=== PATIENT | female | born 1985 | race Hispanic/Latino ===

== ENCOUNTER → 2019-09-11 | Day surgery (SDC) | payer BC ==
[~2019-09-11] MED LIST: LEVOTHYROXINE88 MCG PO; PROPOFOL IV EMULSION 10 MG/ML 20 ML VIAL ONE; VITAMIN E400 UNI1 PO
[2019-09-11 11:30] VITALS: BP 102/72
--- NOTE | 2019-09-11 12:09 | Operative Report ---
DATE OF PROCEDURE: 09/11/2019 SURGEON: Enrique Meyer MD REFERRING PHYSICIANS: 1. Dr. Leonardo Noland. 2. Dr. Carolina Hamilton. PROCEDURE: EGD with biopsies and esophageal dilatation. INDICATIONS FOR PROCEDURE: Acid reflux, dysphagia to solids. MEDICATIONS: The patient was done under MAC, please see anesthesiologist's note. PROCEDURE IN DETAIL: With the patient in left lateral decubitus position, a flexible fiberoptic Olympus gastroscope was introduced into the esophagus under direct visualization without any difficulty. There was some patchy erythema noted in distal esophagus. A minute tongue of velvety red mucosa was noted to extend proximally from the GE junction and biopsies were obtained to rule out Jimenez's. Esophagus was then dilated to size 52-[place] Ramos. The scope was then advanced with ease into the stomach. Mucosa overlying the antrum and the body revealed some diffuse erythema and [id number] edema, and biopsies were obtained. A minute polyp, hyperplastic appearing, was noted in the midbody of the stomach and that was partially excised with the cold biopsy forceps. The pylorus was of normal contour and shape, it was intubated with ease and the scope was advanced all the way to the second portion of the duodenum. The scope was then withdrawn slowly, mucosa overlying the proximal second portion and the duodenal bulb appeared to be within normal limits. The scope was then withdrawn back into the stomach and retroflexed, mucosa overlying the fundus and cardia appeared to be within normal limits. The scope was then straightened out, it was subsequently withdrawn. The patient tolerated the procedure well. IMPRESSION: 1. Distal esophagitis, mild. 2. Rule out Jimenez's esophagus. 3. Esophagus dilated to size 52-[place] Ramos. 4. Gastritis, biopsied. 5. Gastric polyp, minute, midbody, hyperplastic appearing, partially excised with the cold biopsy forceps. PLAN: 1. Follow up histology. 2. Initiate Protonix 40 mg one p.o. q.a.m. a.c. Enrique Meyer MD [facility] [place]/MODL /[id number] cc: Dr. Carolina Noland
== END | disposition home or self-care (01) ==
LOC: OR 07:16
PROVIDERS: ATTEND Internal Medicine Gastroenterology
DX: K21.0 Gastro-esophageal reflux disease with esophagitis (principal); K31.7 Polyp of stomach and duodenum; K29.50 Unspecified chronic gastritis without bleeding; K22.8 Other specified diseases of esophagus; B96.81 Helicobacter pylori [H. pylori] as the cause of diseases classified elsewhere; Z01.812 Encounter for preprocedural laboratory examination; Z11.59 Encounter for screening for other viral diseases; Z68.28 Body mass index [BMI] 28.0-28.9, adult; Z80.0 Family history of malignant neoplasm of digestive organs
CPT/HCPCS: 43239; 43450; 81025; 87635; J2704